=== PATIENT | male | born 1975 | race Caucasian/White ===

== ENCOUNTER → 2019-01-01 | Emergency (ER) | payer OTHER ==
[~2019-01-01] VITALS: Ht 172.7 cm; Wt 88.5 kg
[~2019-01-01] MED LIST: NKM
[2019-01-01 21:10] VITALS: BP 135/83
--- NOTE | 2019-01-01 21:16 | NUR ---
ED Nurse Note: Pt BIBA in handcuffs with police at bedside from gas station where he was screaming and running around without shirt on. Ambulance said pt was tachy 140s with pinpoint pupils at site and 130s upon arrival to ED. Will assess and carry out ER MD's orders.
--- NOTE | 2019-01-01 21:23 | Emergency Room Report ---
History of Present Illness General Chief Complaint: Medical Clearance Source: Patient, Law Enforcement Present Illness HPI This a 43-year-old male with a history chronic pain. He was brought in by police for chief complaint of medical clearance. 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 He said he took Ambien and Percocet and now felt anxious and shaky. Patient was brought here by EMS for medical clearance. Patient denies suicidal thoughts homicidal thought. Said he felt short of breath. No fever chills but no nausea no vomiting. Denies any other complaint. Better now that he is here. Allergies: Coded Allergies: No Known Allergies (Unverified , 01/01/19) Patient History Past Medical History: see triage record, old chart reviewed, psych hx Past Surgical History: other Pertinent Family History: none Social History: Denies: smoking Immunizations: other Reviewed Nursing Documentation: PMH: Agreed; PSxH: Agreed Nursing Documentation-PMH Past Medical History: No Stated History Review of Systems Eye: Denies: eye pain, blurred vision ENT: Denies: ear pain, nose congestion, throat swelling Respiratory: Denies: cough, shortness of breath Cardiovascular: Denies: chest pain, palpitations Gastrointestinal: Denies: abdominal pain, diarrhea, nausea, vomiting Musculoskeletal: Denies: back pain, joint pain Skin: Denies: rash Neurological: Denies: headache, numbness Endocrine: Denies: increased thirst, increased urine Hematologic/Lymphatic: Denies: easy bruising All Other Systems: negative except mentioned in HPI Physical Exam Vital Signs Date Time Temp Pulse Resp B/P (MAP) Pulse Ox O2 Delivery O2 Flow Rate FiO2 01/01/19 21:03 99.0 105 22 98 Room Air vitals unremarkable Sp02 EP Interpretation: reviewed, normal General Appearance: well appearing, no apparent distress, alert Head: normocephalic, atraumatic Eyes: bilateral eye PERRL, bilateral eye EOMI ENT: hearing grossly normal, normal pharynx Neck: full range of motion, supple, no meningismus Respiratory: chest non-tender, lungs clear, normal breath sounds Cardiovascular #1: regular rate, rhythm, no murmur Gastrointestinal: normal bowel sounds, non tender, no mass, no organomegaly, no bruit, non-distended Musculoskeletal: back normal, gait/station normal, normal range of motion Psychiatric: anxious Skin: warm/dry Medical Decision Making Diagnostic Impression: Primary Impression: Opioid abuse Additional Impressions: Acute stress reaction Examination for medicolegal reason ER Course Patient presents with panic attack/acute stress reaction secondary to being arrested. He has a history of opioid abuse. According the [facility] system, he was on Suboxone and diazepam before. On December 28, he filled prescription for Percocet 10 mg, #[address] Garg. The next day on December 29, he filled a prescription for oxycodone 10 mg, #[address] Mendenhall. He claimed that he only filled 30 tablets. He is medically clear for booking. Last Vital Signs Date Time Temp Pulse Resp B/P (MAP) Pulse Ox O2 Delivery O2 Flow Rate FiO2 01/01/19 21:03 99.0 105 22 98 Room Air Status: improved Disposition: D/C TO LAW ENFORCEMENT IN [facility]UST Condition: Stable Additional Instructions: Follow-up with your doctor in 7 days. Someone to different doctors for pain medication. Return if symptom worsen. Yogn Croft MD January 01, 2019 21:23
[2019-01-01 21:25] VITALS: BP 135/83
--- NOTE | 2019-01-01 21:29 | NUR ---
ER DISCHARGE NOTE: Patient is cleared to be discharged per ERMD, pt is aox4, on room air, with stable vital signs. pt was given dc instructions, pt was able to verbalize understanding, pt id band removed without complications. pt is able to ambulate with steady gait. pt took all belongings. Patient is leaving in custody with [employer]
== END ==
LOC: EDBD 21:04 → EMR 21:30
DX: F11.10 Opioid abuse, uncomplicated (principal); F43.0 Acute stress reaction
CPT/HCPCS: 99282